=== PATIENT | female | born 1980 | race Caucasian/White ===

== ENCOUNTER 2017-01-16 11:57 | Emergency (ER) | payer MEDICAID ==
[~2017-01-16] VITALS: Ht 157.5 cm; Wt 75.5 kg
[~2017-01-16 11:57] MED LIST: IBUP-1542 PO
[2017-01-16 12:02] VITALS: Ht 157.5 cm; Wt 75.5 kg
[2017-01-16 13:42] LABS: URINE BLOOD (Dip) POC Trace-intact (NEGATIVE)
[2017-01-16 14:03] LABS: BASOPHIL # 0.1 10^3/ul (0.0-0.1); BASOPHILS % 0.9 % (0.0-2.0); EOSINOPHILS # 0.1 10^3/ul (0.0-0.5); EOSINOPHILS % 1.5 % (0.0-7.0); HEMOGLOBIN 14.4 g/dl (12.0-16.0); LYMPHOCYTES # 2.2 10^3/ul (0.8-2.9); LYMPHOCYTES % 28.8 % (15.0-51.0); MEAN CORPUSCULAR HEMOGLOBIN 31.1 pg (29.0-33.0); MEAN CORPUSCULAR HGB CONC 33.5 g/dl (32.0-37.0); MEAN CORPUSCULAR VOLUME 92.9 fl (82.0-101.0); MEAN PLATELET VOLUME 11.3 fl (7.4-10.4); MONOCYTE # 0.6 10^3/ul (0.3-0.9); MONOCYTES % 8.2 % (0.0-11.0); NEUTROPHIL # 4.5 10^3/ul (1.6-7.5); NEUTROPHILS % 60.2 % (39.0-77.0); PLATELET COUNT 219 10^3/UL (140-415); RED BLOOD COUNT 4.63 10^6/ul (4.20-5.40); RED CELL DISTRIBUTION WIDTH 11.5 % (11.5-14.5); WHITE BLOOD COUNT 7.5 10^3/ul (4.8-10.8)
[2017-01-16 14:23] LABS: CALCIUM 9.4 mg/dl (8.4-10.2); CREATININE 0.84 mg/dl (0.44-1.00); POTASSIUM 4.6 mmol/L (3.5-5.1)
--- NOTE | 2017-01-16 14:32 | RADRPT ---
PROCEDURE: XR Chest. CLINICAL INDICATION: Cough. Dizziness. TECHNIQUE: Single frontal view. COMPARISON: 06/05/2015. FINDINGS: The lungs are clear. The heart size is normal. There is no pleural effusion. There is no pneumothorax. IMPRESSION: 1. Normal chest radiograph. 2. No change from 06/05/2015. RPTAT: QQ .Serge Thomas MD, MD Date Time Electronically viewed and signed by .Serge Thomas MD, on 01/16/2017 14:32 .R/
[2017-01-16] MEDS ORDERED: ONDA4TAB8 PO (14:50)
[2017-01-16] MEDS ORDERED: NITR-58 PO (14:50)
[2017-01-16 15:02] VITALS: BP 122/70; PULSE 78; RESP 18; TEMP 98.2
--- NOTE | 2017-01-16 15:03 | ERD ---
ER Documentation Chief Complaint Date/Time DATE: 01/16/17 TIME: 15:00 Chief Complaint ANXIETY , BODY PAIN, LORENZO, DIZZINESS HPI Patient is a 36 year old female who presents to the ED for multiple complaints. She has been stressed complains of body aches. Also complains of dysuria and urgency. Patient states that she has been stressed with work and has been working 12 hour days. She states that she has had these symptoms in the past. She also states that she has a history of depression and anxiety. She denies suicidal or homicidal ideations. She denies chest pain or shortness of breath. Denies headache but states that she has dizziness on and off. Seizures or rashes. Denies loss of consciousness. No other complaints. ROS All systems reviewed and are negative except as per history of present illness. Medications Home Meds Active Scripts Ondansetron Hcl* (Zofran*) 4 Mg Tablet, 4 MG PO Q6H for NAUSEA AND/OR VOMITING, #30 TAB Prov:VITALIY ALVARES PA-C 01/16/17 Nitrofurantoin Monohyd Macrocr* (Macrobid*) 100 Mg Capsr, 100 MG PO BID for 5 Days, CAP Prov:VITALIY ALVARES PA-C 01/16/17 Ibuprofen* (Motrin*) 600 Mg Tab, 600 MG PO Q6, #30 TAB Prov:ROGE VARGAS MD 06/05/15 Ibuprofen* (Motrin*) 600 Mg Tab, 600 MG PO Q6H Y for PAIN AND OR ELEVATED TEMP, #30 TAB Prov:ROGE VARGAS MD 06/05/15 Allergies Allergies: Coded Allergies: No Known Allergy (Unverified , 10/11/14) PMhx/Soc Medical and Surgical Hx: pt denies Surgical Hx History of Surgery: No Anesthesia Reaction: No Hx Neurological Disorder: No Hx Respiratory Disorders: No Hx Cardiac Disorders: No Hx Psychiatric Problems: No Hx Miscellaneous Medical Probl: Yes (high cholesterol) Hx Alcohol Use: No Hx Substance Use: No Hx Tobacco Use: No Smoking Status: Never smoker FmHx Family History: No coronary disease, No diabetes, No other Physical Exam Vitals Vital Signs Date Time Temp Pulse Resp B/P Pulse Ox O2 Delivery O2 Flow Rate FiO2 01/16/17 12:02 98.1 68 18 125/75 99 Physical Exam GENERAL: Well-developed, well-nourished female. Appears in mild distress, crying HEAD: Normocephalic, atraumatic. EYES: Pupils are equally reactive bilaterally. EOMs grossly intact. No conjunctival erythema. ENT: Moist mucous membranes. No uvula deviation. No kissing tonsils. No exudates. NECK: Supple. No lymphadenopathy or thyromegaly. No meningismus. negative kernig. negative brudinski. LUNG: Clear to auscultation bilaterally. No rhonchi, wheezing, rales or coarse breath sounds. HEART: Regular rate and rhythm. No murmurs, rubs or gallops. ABDOMEN: No scars, ecchymosis or rashes noted. Soft, nontender, and nondistended. Positive bowel sounds in all four quadrants. No rebound tenderness , no guarding. (-) McBurneys point tenderness. No CVA tenderness. BACK: No midline tenderness. Extremities: Equal pulses bilaterally. No peripheral clubbing, cyanosis or edema. No unilateral leg swelling. NEUROLOGIC: Alert and oriented. Moving all four extremities. 5/5 strength in all extremities. Normal speech. Steady gait. cn 2-12 intact. no ataxis. negative romberg SKIN: Normal color. Warm and dry. No rashes or lesions. Capillary refill < 2 seconds Result Diagram: 01/16/17 1342 01/16/17 1342 Results 24 hrs Laboratory Tests Test 01/16/17 13:42 01/16/17 13:50 White Blood Count 7.510^3/ul Red Blood Count 4.6310^6/ul Hemoglobin 14.4g/dl Hematocrit 43.0% Mean Corpuscular Volume 92.9fl Mean Corpuscular Hemoglobin 31.1pg Mean Corpuscular Hemoglobin Concent 33.5g/dl Red Cell Distribution Width 11.5% Platelet Count 53050^3/UL Mean Platelet Volume 11.3fl Neutrophils % 60.2% Lymphocytes % 28.8% Monocytes % 8.2% Eosinophils % 1.5% Basophils % 0.9% Nucleated Red Blood Cells % 0.0/100WBC Neutrophils # 4.510^3/ul Lymphocytes # 2.210^3/ul Monocytes # 0.610^3/ul Eosinophils # 0.110^3/ul Basophils # 0.110^3/ul Nucleated Red Blood Cells # 0.010^3/ul Sodium Level 141mmol/L Potassium Level 4.6mmol/L Chloride Level 107mmol/L Carbon Dioxide Level 28mmol/L Anion Gap 11 Blood Urea Nitrogen 19mg/dl Creatinine 0.84mg/dl Glucose Level 90mg/dl Calcium Level 9.4mg/dl Bedside Urine pH (LAB) 6.0 Bedside Urine Protein (LAB) Negative Bedside Urine Glucose (UA) Negative Bedside Urine Ketones (LAB) Negative Bedside Urine Blood Trace-intact Bedside Urine Nitrite (LAB) Negative Bedside Urine Leukocyte Esterase (L Trace Procedures/MDM ER COURSE: I kept the patient and/or family informed of laboratory and diagnostic imaging results throughout the emergency room course. MEDICAL DECISION MAKING: This is a 36-year-old female who presents with dysuria. Also complains of stress and body aches and dizziness on and off for 1 week. Vital signs were reviewed. Patient is afebrile. Patient is not hypoxic. Is not toxic or ill- appearing. EKG as read by Dr. Riley sinus rhythm with premature atrial complexes otherwise normal EKG. Rate of 62 bpm. EKG performed, no acute ST segment changes, no T wave inversion. Low suspicion for ovarian torsion, PID, tuboovarian abscess, ectopic , bowel obstruction, pyelonephritis, UTI, appendicitis, cervicitis, septic , molar , HELLP syndrome, preeclampsia, eclampsia, placenta previa, placenta abruptia. test. Urine dip shows trace leukocytes with no nitrites. Chest x-ray within normal limits. Low suspicion for ACS, PE, AAA, dissection, DVT. Low suspicion for intracranial hemorrhage, meningitis, intracranial mass, concussion, temporal arteritis, stroke, elevated intracranial pressure, seizure. DISCHARGE: At this time, patient is stable for discharge and outpatient management with no new complaints during the ER course. Patient was sent home with Laverne and Kayla and a copy of all imaging studies. Patient will be discharged home with instructions to recheck for new or worsening symptoms such as fever, nausea, weakness, LOC and to follow up with primary care in the next 1-2 days. Patient was advised to return to the ER for any new or worsening symptoms. Plan was discussed and patient and/or family understands and agrees. Home instructions were given. Departure Diagnosis: Primary Impression: Cystitis Condition: Stable Patient Instructions: Your Body's Response to Anxiety, Cystitis Referrals: [facility] Usted se lorenzo hecho un examen mdico de control que le indica que no est en beryl condicin que requiera tratamiento urgente en el Departamento de Emergencia. Un estudio ms profundo y el tratamiento de gomez condicin pueden esperar sin ningn riesgo hasta que usted sea atendida/o en el consultorio de gomez mdico o beryl cl zion. Es responsabilidad suya arreglar beryl jyoti para el seguimiento del lizzie. MANEJO DE CONDICIONES NO URGENTES EN EL FUTURO 1) Si usted tiene un mdico de atencin primaria: Usted debera llamar a gomez mdico de atencin primaria antes de venir al departamento de emergencia. Despus de las horas de consultorio, gomez doctor o gomez asociado/a est disponible por telfono. El mdico o enfermero de lance en el servicio telefnico puede asesorarle por tabitha medio para atender el problema, o lizzie contrario se puede programar beryl jyoti. 2) Si usted no tiene un mdico de atencin primaria: Llame al mdico o clnica de referencia que aparece abajo rufus las horas de consultorio para hacer beryl jyoti para que le vean. CLINICAS: [facility] [phone] [facility] [phone] [facility] [phone] [facility] [phone] [place] [id number] [phone] [facility]. [phone] [address] Additional Instructions: Llame al doctor MAANA y denae beryl JYOTI PARA DENTRO DE 1-2 SANDERS.Dgale a la secretaria que nosotros le instruimos hacer esta jyoti.Avise o llame si gomez condicin se empeora antes de la jyoti. Regresa aqui si peor o no mejor. VITALIY ALVARES PA-C Jan 16, 2017 15:03
== END 2017-01-16 15:02 | disposition home or self-care (01) ==
LOC: FTE 11:57
DX: N30.90 Cystitis, unspecified without hematuria (principal); R42 Dizziness and giddiness
CPT/HCPCS: 36415; 71010; 80048; 81003; 85025; 93005; Z7502